=== PATIENT | male | born 1965 | race Two or more races ===

== ENCOUNTER 2021-03-19 13:07 | Inpatient (IN) | payer OTHER ==
[2021-03-19 14:30] VITALS: BMI 19.4
[2021-03-19] MEDS ORDERED: ACETAMINOPHEN 325 MG TABLET (FP) PO PRN ×2 (14:42)
[2021-03-19] MEDS ORDERED: MAGNESIUM CITRATE 300 ML BOTTLE PO PRN (14:42)
[2021-03-19] MEDS ORDERED: NICOTINE POLACRILEX 2 MG GUM BUC PRN (14:42)
[2021-03-19] MEDS ORDERED: LORazepam 1 MG TABLET PO PRN (14:42)
[2021-03-19] MEDS ORDERED: ONDANSETRON *ODT* 4 MG TABLET SL PRN (14:42)
[2021-03-19] MEDS ORDERED: MAGNESIUM HYDROX 2400MG/30ML ORAL SUSPENSION 30 ML CUP PO PRN (14:42)
[2021-03-19] MEDS ORDERED: BISMUTH SUBSALICYLATE 524 MG/30 ML PO PRN (14:42)
[2021-03-19] MEDS ORDERED: MENTHOL/PHENOL 1 EACH UD MM PRN (14:42)
[2021-03-19] MEDS ORDERED: MAG HYDROX/AL HYDROX/SIMETH 30 ML UNIT-DOSE CUP PO PRN (14:42)
[2021-03-19] MEDS ORDERED: METHOCARBAMOL 500 MG TABLET PO PRN (14:42)
[2021-03-19] MEDS ORDERED: ONDANSETRON *ODT* 4 MG TABLET ONE (15:36)
[2021-03-19] MEDS ORDERED: LORazepam 2 MG/ML SDV VIAL ONE (15:44)
[2021-03-19 16:58] LABS: HEMATOCRIT 43.4 % (35.4-49); HEMOGLOBIN 14.5 GM/dL (11.7-16.9); MCH 31.7 pg (25.7-33.7); MCHC 33.4 g/dl (32.0-35.9); MEAN CELL VOLUME 94.8 fl (80-96); PLATELET COUNT 194 K/MM3 (134-434); RBC 4.58 M/mm3 (4.00-5.60); RDW 16.6 % (11.9-15.9); WHITE BLOOD COUNT 6.6 K/mm3 (4.0-10.0)
[2021-03-19 17:01] LABS: ALBUMIN 5.2 g/dl (3.4-5.0); BLOOD UREA NITROGEN 13.8 mg/dL (7-18); CALCIUM 9.7 mg/dL (8.5-10.1)
[2021-03-19 17:04] LABS: CREATININE 0.9 mg/dL (0.55-1.3)
[2021-03-19 17:06] LABS: BILIRUBIN,TOTAL 0.8 mg/dL (0.2-1); TOT PROT 8.7 g/dl (6.4-8.2)
[2021-03-20] MEDS: THIAMINE HCL 100 MG TABLET (FP) PO SCH ×2 (01:04→22:16)
[2021-03-20] MEDS: LORazepam 2 MG TABLET PO SCH ×6 (01:04→22:16)
[2021-03-20] MEDS: hydrOXYzine PAMOATE 25 MG CAPSULE (FP) PO SCH ×7 (01:04→22:16)
[2021-03-20] MEDS: MELATONIN 5 MG TABLETS PO SCH ×2 (01:05→22:16)
[2021-03-20] MEDS ORDERED: LORazepam 2 MG TABLET ONE (01:06)
[2021-03-20] MEDS ORDERED: hydrOXYzine PAMOATE 25 MG CAPSULE (FP) PO ONE (01:07)
[2021-03-20] MEDS ORDERED: IBUPROFEN 400 MG TABLET (FP) PO ONE (01:15)
[2021-03-20] MEDS: IBUPROFEN 400 MG TABLET (FP) PO PRN ×2 (01:19→09:01)
[2021-03-20] MEDS ORDERED: ALBUTEROL SO4 HFA INHALER IH PRN (07:52)
[2021-03-20] MEDS: PRENATAL VITAMINS W/ FOLIC ACID TABLET (FP) PO SCH (11:21)
[2021-03-20] MEDS: SERTRALINE HCL 50 MG TABLET (FP) PO SCH (13:31)
[2021-03-20] MEDS: PANTOPRAZOLE 20 MG TABLET PO SCH (13:31)
[2021-03-21] MEDS: LORazepam 1 MG TABLET PO SCH ×4 (05:23→22:17)
[2021-03-21] MEDS: hydrOXYzine PAMOATE 25 MG CAPSULE (FP) PO SCH ×5 (05:24→22:17)
[2021-03-21] MEDS: IBUPROFEN 400 MG TABLET (FP) PO PRN (06:40)
[2021-03-21 10:06] LABS: INR 0.91 (0.83-1.09); PROTHROMBIN TIME (PATIENT) 11.1 SEC (9.7-13.0)
[2021-03-21 10:09] LABS: BLOOD UREA NITROGEN 23.3 mg/dL (7-18)
[2021-03-21 10:11] LABS: ALBUMIN 4.5 g/dl (3.4-5.0); CALCIUM 9.5 mg/dL (8.5-10.1)
[2021-03-21 10:16] LABS: TOT PROT 7.9 g/dl (6.4-8.2)
[2021-03-21] MEDS: PRENATAL VITAMINS W/ FOLIC ACID TABLET (FP) PO SCH (10:22)
[2021-03-21] MEDS: PANTOPRAZOLE 20 MG TABLET PO SCH (10:22)
[2021-03-21] MEDS: SERTRALINE HCL 50 MG TABLET (FP) PO SCH (10:22)
[2021-03-21] MEDS: THIAMINE HCL 100 MG TABLET (FP) PO SCH (22:17)
[2021-03-21] MEDS: MELATONIN 5 MG TABLETS PO SCH (22:17)
[2021-03-22] MEDS ORDERED: LORazepam 0.5 MG TABLET PO PRN
[2021-03-22] MEDS: IBUPROFEN 400 MG TABLET (FP) PO PRN (05:14)
[2021-03-22] MEDS: LORazepam 0.5 MG TABLET PO SCH ×4 (05:14→22:46)
[2021-03-22] MEDS: hydrOXYzine PAMOATE 25 MG CAPSULE (FP) PO SCH ×5 (05:14→22:46)
[2021-03-22] MEDS: PANTOPRAZOLE 20 MG TABLET PO SCH (10:20)
[2021-03-22] MEDS: PRENATAL VITAMINS W/ FOLIC ACID TABLET (FP) PO SCH (10:20)
[2021-03-22] MEDS: SERTRALINE HCL 50 MG TABLET (FP) PO SCH (10:21)
[2021-03-22] MEDS: MELATONIN 5 MG TABLETS PO SCH (22:45)
[2021-03-22] MEDS: THIAMINE HCL 100 MG TABLET (FP) PO SCH (22:45)
[2021-03-23] MEDS ORDERED: LORazepam 0.5 MG TABLET PO ONE (05:00)
[2021-03-23] MEDS: hydrOXYzine PAMOATE 25 MG CAPSULE (FP) PO SCH ×2 (06:11→10:12)
[2021-03-23 09:35] VITALS: BP 121/76; PULSE 83; TEMP 97.7
[2021-03-23] MEDS ORDERED: BACITRACIN 15 GM TUBE TOPICAL OINTMENT TP ONE (10:07)
[2021-03-23] MEDS: SERTRALINE HCL 50 MG TABLET (FP) PO SCH (10:11)
[2021-03-23] MEDS: PANTOPRAZOLE 20 MG TABLET PO SCH (10:11)
[2021-03-23] MEDS: PRENATAL VITAMINS W/ FOLIC ACID TABLET (FP) PO SCH (10:11)
== END 2021-03-23 11:59 | disposition home or self-care (01) | DRG 775 ==
LOC: YASAS 13:07 → Y6N 03-20 01:54
PROVIDERS: ADMIT Allergy & Immunology; ATTEND Allergy & Immunology
PROC: HZ2ZZZZ Detoxification Services for Substance Abuse Treatment (ICD-10-PCS; principal; 2021-03-20)
DX: F10.230 Alcohol dependence with withdrawal, uncomplicated (principal); F12.20 Cannabis dependence, uncomplicated; F17.210 Nicotine dependence, cigarettes, uncomplicated; F10.282 Alcohol dependence with alcohol-induced sleep disorder; F32.9 Major depressive disorder, single episode, unspecified; J44.9 Chronic obstructive pulmonary disease, unspecified; K21.9 Gastro-esophageal reflux disease without esophagitis; Z62.810 Personal history of physical and sexual abuse in childhood; G40.89 Other seizures; S05.11XA Contusion of eyeball and orbital tissues, right eye, initial encounter; W18.39XA Other fall on same level, initial encounter; Y92.238 Other place in hospital as the place of occurrence of the external cause; Y93.9 Activity, unspecified
CPT/HCPCS: 36415; 70450-TC; 70486-TC; 72125-TC; 80053; 85027; 85610; 86780; 90715; C9803; Q0162; U0003; U0005